=== PATIENT | female | born 1965 | race Caucasian/White ===

== ENCOUNTER → 2018-05-09 | Outpatient (CLI) | payer BC ==
[~2018-05-09] MED LIST: ALPR-475 PO; ATOR40TA78 PO; CLOP75TA52 PO; GABA300C10 PO; VENL150C PO
[2018-05-09 10:04] LABS: BASOPHILS # (AUTO) 0.05 x10^3/uL (0-0.1); BASOPHILS % (AUTO) 1 % (0-1); EOSINOPHILS # (AUTO) 0.23 x10^3/uL (0-0.4); EOSINOPHILS % (AUTO) 4 % (1-7); LYMPHOCYTES # (AUTO) 1.49 x10^3/uL (1-3.4); LYMPHOCYTES % (AUTO) 28 % (22-44); MD NO; MEAN CORPUSCULAR HEMOGLOBIN 27.7 pg (27.0-34.8); MEAN CORPUSCULAR HGB CONC 32.6 g/dL (32.4-35.8); MEAN PLATELET VOLUME 8.5 fL (7.4-10.4); MONOCYTES % (AUTO) 8 % (2-9); NEUTROPHILS # (AUTO) 3.09 x10^3/uL (1.8-6.8); NEUTROPHILS % (AUTO) 59 % (42-75); PLATELET COUNT 241 x10^3/uL (130-400); RED BLOOD COUNT 4.73 x10^6/uL (3.82-5.3); RED CELL DISTRIBUTION WIDTH 14.8 % (9.6-15.2)
[2018-05-09 10:07] LABS: MICROSCOPIC NOT IND
[2018-05-09 10:08] LABS: CULTURE INDICATED? NO
[2018-05-09 10:14] LABS: ANION GAP 5 mmol/L (5-15); CALCIUM 8.8 mg/dL (8.5-10.1); CHLORIDE 109 mmol/L (98-107); CREATININE 0.74 mg/dL (0.55-1.02)
[2018-05-09 10:17] LABS: INTERNATIONAL NORMALIZED RATIO 0.99 (0.93-1.1); PROTHROMBIN TIME 10.2 Seconds (9.6-11.5)
[2018-05-09 12:16] LABS: HEMOGLOBIN A1C 6.2 % (4.2-6.3)
== END | disposition home or self-care (01) ==
LOC: STAR 09:00
PROVIDERS: ATTEND Orthopaedic Surgery
DX: Z01.818 Encounter for other preprocedural examination (principal)
CPT/HCPCS: 36415; 80048; 81003; 83036; 85025; 85610; 85730; 87081; 87147; 87806; 93005; G0475

== ENCOUNTER 2018-05-14 05:33 | Observation (INO) | payer BC ==
[~2018-05-14] VITALS: Ht 167.6 cm; Wt 75.9 kg
[2018-05-14] MEDS ORDERED: LACTATED RINGERS 1,000 ML IV SCH (06:39)
[2018-05-14] MEDS ORDERED: LIDOCAINE-MPF 1%, 5ML ONE (06:54)
[2018-05-14] MEDS ORDERED: GABAPENTIN 300 MG CAPSULE PO ONE (07:00)
[2018-05-14] MEDS ORDERED: LIDOCAINE-MPF 1%, 2ML INFIL ONE (07:00)
[2018-05-14] MEDS ORDERED: ACETAMINOPHEN 500 MG TABLET PO ONE (07:00)
[2018-05-14] MEDS ORDERED: EPINEPHRINE 1 MG/ML, 1ML ONE (07:02)
[2018-05-14] MEDS ORDERED: TRANEXAMIC ACID 100 MG/ML, 10ML ONE ×6 (07:02→07:04)
[2018-05-14] MEDS ORDERED: KETOROLAC 60 MG/2 ML ONE (07:02)
[2018-05-14] MEDS ORDERED: ROPIvacaine/PF 0.2%, 20 ML ONE (07:02)
[2018-05-14] MEDS ORDERED: VANCOMYCIN 1,000 MG ONE (07:04)
[2018-05-14] MEDS ORDERED: ENOX40SY4 SQ (07:14)
[2018-05-14] MEDS ORDERED: MUPI22OI2 NAS (07:14)
[2018-05-14] MEDS ORDERED: ACETAMINOPHEN 650 MG/20.3 ML UDC PO PRN (07:30)
[2018-05-14] MEDS ORDERED: TRANEXAMIC ACID 1,000 MG in SODIUM CHLORIDE 0.9% 100 ML IVPB ONE (07:30)
[2018-05-14] MEDS ORDERED: ONDANSETRON 4 MG TABLET PO PRN (07:30)
[2018-05-14] MEDS ORDERED: ONDANSETRON 2MG/ML, 2ML IV PRN (07:30)
[2018-05-14] MEDS ORDERED: PROMETHAZINE 12.5 MG SUPP PR PRN (07:30)
[2018-05-14] MEDS ORDERED: DIPHENHYDRAMINE 50 MG CAPSULE PO PRN (07:30)
[2018-05-14] MEDS ORDERED: ALUMINUM/MAG/SIMETHICONE 30 ML UDC PO PRN (07:30)
[2018-05-14] MEDS ORDERED: MAGNESIUM HYDROXIDE 8%, 30ML UDC PO PRN (07:30)
[2018-05-14] MEDS ORDERED: PROMETHAZINE 25 MG/ML, 1ML IM PRN (07:30)
[2018-05-14] MEDS ORDERED: HYDROmorphone 1 MG/ML, 1ML IV PRN ×2 (07:30→10:30)
[2018-05-14] MEDS ORDERED: VANCOMYCIN PER PHARMACY MC PRN (07:30)
[2018-05-14] MEDS ORDERED: VANCOMYCIN PMX 1GM/200ML 200 ML IVPB SCH (07:30)
[2018-05-14] MEDS ORDERED: SENNA/DOCUSATE TABLET PO PRN (07:30)
[2018-05-14] MEDS ORDERED: MIDAZOLAM 1 MG/ML, 2ML ONE (07:32)
[2018-05-14] MEDS ORDERED: FENTANYL PF 250 MCG/5ML ONE (07:32)
[2018-05-14] MEDS ORDERED: OXYcodone 5 MG/5 ML ORAL.SOL UDC PO PRN ×2 (08:30→10:30)
[2018-05-14] MEDS ORDERED: FENTANYL PF 100 MCG/2ML IV PRN ×2 (08:30→10:30)
[2018-05-14] MEDS ORDERED: ALBUTEROL SULFATE 2.5 MG/3 ML NPPB PRN ×2 (08:30→10:30)
[2018-05-14] MEDS ORDERED: PROMETHAZINE 25 MG/ML, 1ML IV PRN ×2 (08:30→10:30)
[2018-05-14] MEDS ORDERED: LABETALOL 5MG/ML, 20ML IV PRN ×2 (08:30→10:30)
[2018-05-14] MEDS ORDERED: hydrALAzine 20 MG/ML, 1ML IV PRN ×2 (08:30→10:30)
[2018-05-14] MEDS ORDERED: MEPERIDINE/PF 25MG/0.5ML IVPush PRN ×2 (08:30→10:30)
[2018-05-14] MEDS ORDERED: LORazepam 2 MG/ML, 1ML IVPush PRN ×2 (08:30→10:30)
[2018-05-14] MEDS ORDERED: HYDROmorphone 2 MG/ML, 1ML ONE ×2 (09:43→10:26)
[2018-05-14] MEDS ORDERED: OXYcodone 5 MG/5 ML ORAL.SOL UDC ONE (09:43)
[2018-05-14] MEDS ORDERED: ACETAMINOPHEN 650 MG/20.3 ML UDC ONE (09:43)
[2018-05-14] MEDS: HYDROmorphone 1 MG/ML, 1ML IV PRN ×6 (09:51→10:36)
[2018-05-14] MEDS ORDERED: LORazepam 2 MG/ML, 1ML ONE (10:26)
[2018-05-14] MEDS ORDERED: ACETAMINOPHEN 325 MG TABLET PO PRN (11:41)
[2018-05-14] MEDS ORDERED: PHARMACOKINETIC MONITORING MC PRN (12:00)
[2018-05-14 12:13] VITALS: BP 101/47
[2018-05-14] MEDS: D5%-0.45NACL+KCL 20MEQ 1,000 ML IV SCH ×2 (13:06→21:43)
[2018-05-14] MEDS: DOCUSATE 100 MG CAPSULE PO SCH ×2 (13:07→21:01)
[2018-05-14] MEDS: VANCOMYCIN 1,200 MG in SODIUM CHLORIDE 0.9% 250 ML IV SCH (13:07)
[2018-05-14] MEDS: TAMSULOSIN 0.4 MG CAP.ER.24H PO SCH (13:07)
[2018-05-14] MEDS: OXYcodone IR 5MG TABLET PO PRN ×2 (15:06→20:00)
[2018-05-14] MEDS: GABAPENTIN 300 MG CAPSULE PO SCH ×2 (16:44→21:01)
[2018-05-14] MEDS: CEFAZOLIN PMX 1GM/50ML 50 ML IVPB SCH (16:44)
[2018-05-14] MEDS ORDERED: VENL100T PO (18:36)
[2018-05-14 19:00] VITALS: BP 109/67
[2018-05-14] MEDS ORDERED: ATORVASTATIN 40 MG TABLET PO SCH (21:00)
[2018-05-14 23:54] VITALS: BP 101/61
[2018-05-15] MEDS: CEFAZOLIN PMX 1GM/50ML 50 ML IVPB SCH (00:26)
[2018-05-15] MEDS: VANCOMYCIN 1,200 MG in SODIUM CHLORIDE 0.9% 250 ML IV SCH (01:06)
[2018-05-15 03:27] VITALS: BP 116/65
[2018-05-15] MEDS: OXYcodone IR 5MG TABLET PO PRN ×2 (03:33→08:15)
[2018-05-15] MEDS ORDERED: DEXAMETHASONE 4 MG/ML, 1ML IVPush SCH (06:00)
[2018-05-15 06:30] VITALS: BP 101/58
[2018-05-15] MEDS ORDERED: KETOROLAC 30 MG/1 ML IV SCH (07:30)
[2018-05-15] MEDS ORDERED: CEFAZOLIN 1,000 MG ONE (07:32)
[2018-05-15] MEDS ORDERED: DEXAMETHASONE 4 MG/ML, 1ML ONE (07:32)
[2018-05-15] MEDS ORDERED: PROPOFOL 10 MG/ML, 20ML ONE (07:32)
[2018-05-15] MEDS ORDERED: ONDANSETRON 2MG/ML, 2ML ONE (07:32)
[2018-05-15] MEDS: D5%-0.45NACL+KCL 20MEQ 1,000 ML IV SCH (08:00)
[2018-05-15] MEDS ORDERED: VENLAFAXINE 37.5MG TABLET ONE (08:06)
[2018-05-15] MEDS: DOCUSATE 100 MG CAPSULE PO SCH (08:15)
[2018-05-15] MEDS: GABAPENTIN 300 MG CAPSULE PO SCH (08:15)
[2018-05-15] MEDS: TAMSULOSIN 0.4 MG CAP.ER.24H PO SCH (08:15)
[2018-05-15] MEDS ORDERED: VENLAFAXINE 75 MG CAP ER PO SCH (09:00)
[2018-05-15] MEDS ORDERED: VENLAFAXINE XR 37.5MG CAP.ER.24H PO SCH (09:00)
[2018-05-15] MEDS ORDERED: CLOPIDOGREL 75 MG TABLET PO SCH (09:00)
[2018-05-15] MEDS ORDERED: VENLAFAXINE 75MG TABLET PO SCH ×2 (09:00)
[2018-05-15] MEDS ORDERED: DOCU-131 PO (09:42)
[2018-05-15] MEDS ORDERED: ONDA4TAB10 PO (09:44)
[2018-05-15] MEDS ORDERED: CELE200C PO (09:45)
[2018-05-15] MEDS ORDERED: TRAM50TA2 PO (09:49)
[2018-05-15] MEDS ORDERED: OXYC5TAB2 PO (09:59)
== END 2018-05-15 10:40 | disposition home or self-care (01) ==
LOC: OBSVTOIN 05:33 → INTOOBSV 05:33 → ORIP 05:33 → 4NOR 11:29 → DCLOUNGE 05-15 10:19
PROVIDERS: ADMIT Orthopaedic Surgery; ATTEND Orthopaedic Surgery
DX: M17.31 Unilateral post-traumatic osteoarthritis, right knee (principal)
CPT/HCPCS: 27447; 36415; 73560; 85014; 85018; 96365; 96366; 96367; 96375; 97162; 97165; C1713; C1776; G0378; J0171; J0690; J1100; J1170; J1885; J2060; J2250; J2405; J2704; J2795; J3010; J3370; J3480; J3490; J7050; J7120